=== PATIENT | female | born 1985 | race Caucasian/White ===

== ENCOUNTER 2020-04-09 07:52 | Observation (INO) | payer BC, SELFPAY ==
[2020-04-09] VITALS (28 sets, daily range): BP systolic 129–155; BP diastolic 70–83; PULSE 83–109; RESP 16–17; TEMP 36.6; O2SAT 97–100; BMI 50.7
--- NOTE | 2020-04-09 07:52 | OBADM ---
This patient, Saima Mccracken, admitted to the OB room [facility] for observation. Patient/family oriented to hospital policies and general routines including ID bracelet, bed and alarms, visiting hours, pain management, procedures, bathroom and other care routines, personal items, smoking policy, room service/diet, and visiting hours. Patient/Family are encouraged to report perceived risks to care and to ask questions if they do not understand what they are told or what they should do.
[2020-04-09 08:34] LABS: Basophils Percent Auto 0.2 % (0.2-1.2); Eosinophils Absolute Auto 0.2 K/mm3 (0-0.3); Eosinophils Percent Auto 2.5 % (0-4.4); Hematocrit 30.8 % (37.0-47.0); Hemoglobin 9.8 g/dL (12.0-15.0); Immature Granulocyte Absolute 0.05 K/mm3 (0.00-0.031); Immature Granulocyte Percent A 0.8 % (0-0.5); Lymphocytes Absolute Auto 1.32 K/mm3 (0.9-3.2); Lymphocytes Percent Auto 21.6 % (18.3-44.2); Mean Corpuscular HGB Conc 31.8 g/dl (32-36); Mean Corpuscular Hemoglobin 24.9 pg (26-34); Mean Corpuscular Volume 78.4 fl (80-100); Mean Platelet Volume 11.3 fl (7.4-10.4); Monocytes Absolute Auto 0.4 K/mm3 (0.1-0.6); Monocytes Percent Auto 6.4 % (2.6-8.5); Neutrophils Absolute Auto 4.2 K/mm3 (1.3-6.7); Neutrophils Percent Auto 68.5 % (45.5-73.1); Platelet Count Result 147 k/mm3 (150-375); Red Blood Count 3.93 M/mm3 (4.2-5.4); Red Cell Distribution Width 17.3 % (11.5-14.5); White Blood Count 6.1 K/mm3 (4.5-10.0)
--- NOTE | 2020-04-09 09:53 | PM.IMHP ---
H&P: HPI History of Present Illness Date/Time: 04/09/20 09:53 Chief complaint: SROM Narrative: Saima Mccracken is a 35 year old female At 22 weeks gestation presents with rupture membranes this morning. No bleeding contractions or other pain. Has had good movement. No known risk factors and no issues prior during this . Review of Systems Review of Systems: All systems reviewed & are unremarkable except as noted in HPI and below Meds Home Medications and Allergies Home Medications Medication Instructions Recorded Confirmed Type PNV cmb#95-ferrous fumarate-FA 1 tablet PO DAILY 04/09/20 04/09/20 History [] aspirin [Aspirin Low Dose] 81 mg PO DAILY 04/09/20 04/09/20 History ferrous sulfate [Iron (ferrous 325 mg PO BID 04/09/20 04/09/20 History sulfate)] levothyroxine [Synthroid] 88 mcg PO DAILY 04/09/20 04/09/20 History Allergies Allergy/AdvReac Type Severity Reaction Status Date / Time Penicillins Allergy Mild Rash Verified 04/09/20 08:25 Vital Signs Vital Signs - 24 hr 04/09/20 08:05 04/09/20 08:06 04/09/20 08:39 Pulse Rate 104 H Respiratory Rate 16 Blood Pressure 155/80 H Pulse Oximetry 97 100 04/09/20 08:42 04/09/20 08:44 04/09/20 08:45 Pulse Rate 87 89 Respiratory Rate 17 Blood Pressure 137/81 129/72 Pulse Oximetry 99 04/09/20 08:49 04/09/20 08:54 04/09/20 08:59 Pulse Rate Respiratory Rate Blood Pressure Pulse Oximetry 100 100 98 04/09/20 09:02 04/09/20 09:04 04/09/20 09:09 Pulse Rate 89 Respiratory Rate Blood Pressure 139/75 Pulse Oximetry 100 100 04/09/20 09:14 04/09/20 09:15 04/09/20 09:19 Pulse Rate 89 Respiratory Rate Blood Pressure 145/75 H Pulse Oximetry 100 99 04/09/20 09:23 04/09/20 09:28 04/09/20 09:30 Pulse Rate 87 Respiratory Rate Blood Pressure 130/70 Pulse Oximetry 99 100 04/09/20 09:33 04/09/20 09:38 04/09/20 09:43 Pulse Rate Respiratory Rate Blood Pressure Pulse Oximetry 100 100 100 04/09/20 09:48 Pulse Rate Respiratory Rate Blood Pressure Pulse Oximetry 100 Exam Const: General: no acute distress Resp: Auscultation: clear to auscultation bilaterally Cardio: Rate: regular rate Rhythm: regular rhythm GI: GI Palp: Yes Soft to palpation Other: heart tones 140 uterus nontender H&P: Results Labs Labs: Short CBC 04/09/20 Range/Units 08:27 WBC 6.1 (4.5-10.0) K/mm3 Hgb 9.8 L (12.0-15.0) g/dL Hct 30.8 L (37.0-47.0) % Plt Count 147 L (150-375) k/mm3 Assessment and Plan Assessment and plan (1) 22 weeks gestation of : Code(s): Z3A.22 - 22 weeks gestation of Status: Acute (2) Rupture, membranes, premature: Code(s): O42.90 - Premature rupture of membranes, unspecified as to length of time between rupture and onset of labor, unspecified weeks of gestation Status: Acute Assessment and Plan: discussed with Dr. Rodriguez at [facility] and she will accept as transfer. At this point will not initiate antibiotics steroids or magnesium sulfate.
--- NOTE | 2020-04-09 10:07 | PC.NURSE ---
Report called to ABDOUL Almanzar at [facility]. ABDOUL Almanzar states understanding of report and denies questions.
--- NOTE | 2020-04-09 10:39 | PC.NURSE ---
arrived for transport to [facility]. Report given to EMS team. EMS team states understanding and denies questions. Patient removed from monitors and up to restroom prior to transferring to stretcher. Patient denies contractions or pain. Patient reports active movement.
--- NOTE | 2020-04-09 10:49 | PC.NURSE ---
Patient transported via EMS on stretcher to [facility].
== END 2020-04-09 10:49 | disposition short-term general hospital (02) ==
PROVIDERS: Admitting Provider Obstetrics & Gynecology; PCP Obstetrics & Gynecology; Visit Provider Obstetrics & Gynecology
DX: O42.912 Preterm premature rupture of membranes, unspecified as to length of time between rupture and onset of labor, second trimester (principal); Z3A.22 22 weeks gestation of pregnancy
CPT/HCPCS: 36415; 84112; 85025; G0378; G0379

== ENCOUNTER 2024-02-16 18:28 | Emergency (ER) | payer OTHER, SELFPAY ==
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
[2024-02-16 18:37] VITALS: BP 154/99; PULSE 100; RESP 22; TEMP 36.6; O2SAT 100
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
[2024-02-16] MEDS: TETANUS,DIPHTHERIA,AC PERTUSSIS ADULT (0.5 ML) BOOSTRIX IM (21:32)
[2024-02-16 21:54] VITALS: BP 149/86; PULSE 89; RESP 20; O2SAT 100
== END 2024-02-16 21:55 | disposition home or self-care (01) ==
PROVIDERS: Emergency Provider Emergency Medicine
DX: S60.222A Contusion of left hand, initial encounter (principal); S50.12XA Contusion of left forearm, initial encounter; Z23 Encounter for immunization; I10 Essential (primary) hypertension; E03.9 Hypothyroidism, unspecified; V43.52XA Car driver injured in collision with other type car in traffic accident, initial encounter
CPT/HCPCS: 73090; 73130; 90471; 90715; 99283